=== PATIENT | female | born 1990 | race Caucasian/White ===

== ENCOUNTER 2018-11-06 20:56 | Emergency (ER) | payer MEDICAID ==
[~2018-11-06] VITALS: Ht 170.2 cm; Wt 81.4 kg
[~2018-11-06 20:56] MED LIST: BACTRIM DS TABL1 TAB PO; LATUDA80 MG PO; NORCO 5/325 TAB1 TA1 PO
[2018-11-06 21:03] VITALS: Ht 170.2 cm; Wt 81.4 kg
[2018-11-06] MEDS ORDERED: VOLTAREN75 MG PO (22:57)
[2018-11-06] MEDS ORDERED: SILVADENE20 GM TP (22:57)
[2018-11-06] MEDS ORDERED: TYLENOL W/CODEI1 TAB PO (22:57)
[2018-11-07 00:17] VITALS: BP 145/88
== END 2018-11-07 00:29 | disposition home or self-care (01) ==
LOC: D.ER 20:56
DX: T22.012A Burn of unspecified degree of left forearm, initial encounter (principal); X10.2XXA Contact with fats and cooking oils, initial encounter; Y93.G3 Activity, cooking and baking; Y92.010 Kitchen of single-family (private) house as the place of occurrence of the external cause

== ENCOUNTER 2018-11-17 21:32 | Emergency (ER) | payer MEDICAID ==
[~2018-11-17] VITALS: Ht 170.2 cm; Wt 78.2 kg
[~2018-11-17 21:32] MED LIST changes: +SILVADENE20 GM TP; +TYLENOL W/CODEI1 TAB PO; +VOLTAREN75 MG PO
[2018-11-17 21:43] VITALS: Ht 170.2 cm; Wt 78.2 kg
[2018-11-17 22:25] LABS: BASOPHILS 0.3 % (0-2); HEMATOCRIT 38.5 % (36.0-48.0); HEMOGLOBIN 13.2 g/dL (12-16); IMMATURE GRANULOCYTES 0.1 % (0-5); LYMPHOCYTES 45.2 % (15-50); MCH 29.9 pg (26.0-34.0); MCHC 34.3 g/dL (31.0-37.0); MCV 87.3 fL (80.0-100.0); MEAN PLATELET VOLUME 9.3 fL (7.4-10.4); MONOCYTES 5.9 % (2-11); NEUTROPHILS 45.5 % (40-80); PLATELET COUNT 290 10x3/uL (130-400); RBC 4.41 10x6/uL (4.00-5.40); RDW 13.1 % (11.5-14.5); WBC 7.2 10x3/uL (4.8-10.8)
[2018-11-17 22:32] LABS: APTT 33.1 SECONDS (22.8-39.4); INR 0.92 (0.85-1.17); PROTIME 11.9 SECONDS (11.6-15.0)
[2018-11-17 22:39] LABS: ALBUMIN 3.1 g/dL (3.4-5.0); ALKALINE PHOSPHATASE 99 U/L (46-116); ALT (SGPT) 16 U/L (10-68); BILIRUBIN - TOTAL 0.17 mg/dL (0.2-1.3); CALC OSMOLALITY 276 mosm/kg (275-300); CALCIUM 8.1 mg/dL (8.5-10.1); CARBON DIOXIDE 27.6 mmol/L (21.0-32.0); CHLORIDE - SERUM 104 mmol/L (98-107); CREATININE - SERUM 0.7 mg/dL (0.6-1.3); GLUCOSE 91 mg/dL (74-106); POTASSIUM - SERUM 3.3 mmol/L (3.5-5.1); PROTEIN - SERUM 7.2 g/dL (6.4-8.2); SODIUM 139 mmol/L (136-145); UREA NITROGEN 9 mg/dL (7-18); eGFR NON AFRICAN AMERICAN > 90 mL/min (90-120)
[2018-11-17 22:49] LABS: CKMB 0.4 U/L (0.0-3.6); CREATINE KINASE 72 UL (21-215)
[2018-11-17 22:50] LABS: TROPONIN-I < 0.017 ng/mL (0.000-0.060)
[2018-11-18 01:55] VITALS: BP 121/76
== END 2018-11-18 01:55 | disposition home or self-care (01) ==
LOC: D.ER 21:32
PROVIDERS: Family Medicine
DX: R07.89 Other chest pain (principal); E87.8 Other disorders of electrolyte and fluid balance, not elsewhere classified; M62.838 Other muscle spasm

== ENCOUNTER 2020-12-18 19:49 | Emergency (ER) | payer MEDICAID ==
[~2020-12-18] VITALS: Ht 170.2 cm; Wt 81.6 kg
[2020-12-18 19:56] VITALS: BP 133/82; Ht 170.2 cm; Wt 81.6 kg
[2020-12-18] MEDS ORDERED: DICLOFENAC SODI50 MG PO (21:01)
== END 2020-12-18 21:15 | disposition home or self-care (01) ==
LOC: D.ER 19:49
DX: S50.02XA Contusion of left elbow, initial encounter (principal); S40.012A Contusion of left shoulder, initial encounter; Y08.89XA Assault by other specified means, initial encounter; Y93.9 Activity, unspecified; Y92.9 Unspecified place or not applicable